=== PATIENT | female | born 1945 | race Two or more races ===

== ENCOUNTER 2017-01-16 16:14 | Outpatient (CLI) | payer MEDICARE, BC | END 2017-01-16 23:59 | disposition home or self-care (01) | LOC: RAD 16:14 | PROVIDERS: ATTEND Family Medicine | DX: M51.37 Other intervertebral disc degeneration, lumbosacral region (principal); M47.896 Other spondylosis, lumbar region; M48.07 Spinal stenosis, lumbosacral region | CPT/HCPCS: 72100-TC ==